=== PATIENT | female | born 1970 | race Caucasian/White ===

== ENCOUNTER 2017-06-08 08:31 | Inpatient (IN) | payer MEDICAID ==
[~2017-06-08] VITALS: Ht 167.6 cm; Wt 72.7 kg
[~2017-06-08 08:31] MED LIST: CEPH-571 PO; CEPH-572 PO; CYCL-1 PO; DICY10CA88 PO; HYDR-569 PO; NORCO10T PO
[2017-06-08] MEDS ORDERED: famotidine/PF 10 mg/ml inj IV ONE (09:00)
[2017-06-08] MEDS ORDERED: proCHLORperazine 10 MG/2 ml inj IV ONE (09:00)
[2017-06-08] MEDS ORDERED: LORazepam 2 mg/ml vial IV ONE (09:00)
[2017-06-08] MEDS ORDERED: normal saline 1000ML IV soln IVB ONE ×2 (09:00→12:45)
[2017-06-08 09:15] LABS: BASOPHILS % (AUTO) 0.2 % (0-1); EOSINOPHILS # (AUTO) 0.1 X10'3 (0-0.9); EOSINOPHILS % (AUTO) 0.6 % (0-6); HEMATOCRIT 45.6 % (35.0-45.0); HEMOGLOBIN 15.4 g/dl (12.0-16.0); LYMPHOCYTES # (AUTO) 2.4 X10'3 (1.1-4.8); LYMPHOCYTES % (AUTO) 18.4 % (21-51); MEAN CORPUSCULAR HEMOGLOBIN 30.9 PG (27.0-31.0); MEAN CORPUSCULAR HGB CONC 33.8 % (33.0-36.5); MEAN CORPUSCULAR VOLUME 91.4 FL (78-98); MEAN PLATELET VOLUME 7.4 FL (7.4-10.4); MONOCYTES # (AUTO) 0.4 X10'3 (0-0.9); MONOCYTES % (AUTO) 3.2 % (2-12); NEUTROPHILS # (AUTO) 10.3 X10'3 (1.8-7.7); NEUTROPHILS % (AUTO) 77.6 % (42-75); PLATELET COUNT 456 X10'3 (140-440); RED BLOOD COUNT 4.99 X10'6 (4.20-5.60); RED CELL DISTRIBUTION WIDTH 13.2 % (11.5-14.5); WHITE BLOOD COUNT 13.2 X10'3 (4.5-11.0)
[2017-06-08 09:28] LABS: HCG SERUM QL NEGATIVE
[2017-06-08 09:29] LABS: ALANINE AMINOTRANSFERASE 23 U/L (12-78); ALBUMIN 3.8 G/DL (3.4-5.0); ALBUMIN/GLOBULIN RATIO 0.9 (1.1-1.5); ALKALINE PHOSPHATASE 134 IU/L (46-116); ANION GAP 13 (8-16); ASPARTATE AMINO TRANSFERASE 15 U/L (10-37); BILIRUBIN,TOTAL 0.6 MG/DL (0.1-1.0); BLOOD UREA NITROGEN 10 MG/DL (7-18); BUN/CREATININE RATIO 12.5 (6.6-38.0); CALCIUM 9.4 MG/DL (8.5-10.1); CHLORIDE 102 MMOL/L (99-107); GLUCOSE 166 MG/DL (70-104); LIPASE < 50 U/L (73-393); POTASSIUM 3.5 MMOL/L (3.5-5.1); SODIUM 137 MMOL/L (135-145); TOTAL CARBON DIOXIDE 21.8 MMOL/L (24-32); TOTAL PROTEIN 7.9 G/DL (6.4-8.2); eGFR 77 ML/MIN
[2017-06-08 10:54] LABS: CLARITY,URINE CLEAR (Clear); COLOR,URINE STRAW (Yellow); GLUCOSE, URINE NEGATIVE (Neg); KETONES,URINE 40 mg/dl (Neg); LEUKOCYTE ESTERASE ,URINE NEGATIVE (Neg); NITRITES, URINE NEGATIVE (Neg); OCCULT BLOOD,URINE TRACE-INTACT (Neg); PROTEIN,URINE NEGATIVE (Neg); UROBILINOGEN,URINE 0.2 E.U/dL (0.2-1.0)
[2017-06-08 10:56] LABS: UA COLLECTION TYPE CLN CATCH MIDSTREAM
[2017-06-08 11:01] LABS: BACTERIA,URINE FEW /HPF (Neg); MUCUS STRANDS FEW /LPF (Neg); RBC,URINE 0-2 /HPF (0-2); SQUAMOUS EPITHELIAL CELL,UR FEW /LPF (FEW); WBC,URINE 0-4 /HPF (0-4)
[2017-06-08 11:06] LABS: URINE AMPHETAMINE SCREEN NEGATIVE (Neg); URINE BARBITUATE SCREEN NEGATIVE (Neg); URINE BENZODIAZEPINES SCREEN NEGATIVE (Neg); URINE CANNABINOID SCREEN POSITIVE (Neg); URINE COCAINE SCREEN NEGATIVE (Neg); URINE METHADONE SCREEN NEGATIVE (Neg); URINE OPIATE SCREEN POSITIVE (Neg); URINE PHENCYCLIDINE SCREEN NEGATIVE (Neg)
[2017-06-08] MEDS ORDERED: ondansetron/PF 4mg/2ml inj IV ONE ×2 (11:25→12:45)
[2017-06-08] MEDS ORDERED: metoclopramide 5 mg/ml inj IV ONE (14:40)
[2017-06-08] MEDS ORDERED: pantoprazole 40 MG vial IV ONE ×2 (14:40→15:35)
[2017-06-08] MEDS ORDERED: iohexol 300mg/ml 100ml inj. ONE (14:42)
[2017-06-08] MEDS ORDERED: acetaminophen 325mg tablet PO PRN (14:50)
[2017-06-08] MEDS ORDERED: magnesium hydroxide 30ml (MOM) UD suspension PO PRN (14:50)
[2017-06-08] MEDS ORDERED: metoclopramide 5 mg/ml inj IV PRN (14:50)
[2017-06-08] MEDS ORDERED: mag hydrox/Alum hydrox/simeth 30ml oral suspension PO PRN (14:50)
[2017-06-08] MEDS ORDERED: hydrALAZINE 20mg/ml inj. IV ONE ×2 (14:50→17:45)
[2017-06-08] MEDS ORDERED: ondansetron/PF 4mg/2ml inj IV PRN (14:50)
[2017-06-08 15:17] LABS: HEMOGLOBIN A1C 5.2 % (4.5-6.2)
[2017-06-08] MEDS: normal saline 1000ml 1,000 ML IV SCH (15:18)
[2017-06-08] MEDS ORDERED: SERT100T10 PO (16:02)
[2017-06-08 16:47] VITALS: BP 185/87
[2017-06-08] MEDS ORDERED: HYDROmorphone inj. 0.5 MG/0.5 ML DISP.SYRIN IV ONE (17:45)
[2017-06-08] MEDS: ondansetron/PF 4mg/2ml inj IV PRN (17:59)
[2017-06-08 20:00] VITALS: BP 154/79
[2017-06-09] VITALS: BP 156/93
[2017-06-09] MEDS: HYDROcodone/acetaminophen 10/325mg tab PO SCH ×4 (00:44→17:15)
[2017-06-09] MEDS ORDERED: HYDROmorphone inj. 0.5 MG/0.5 ML DISP.SYRIN IV ONE (05:50)
[2017-06-09 06:19] LABS: BASOPHILS % (AUTO) 0.2 % (0-1); EOSINOPHILS % (AUTO) 0 % (0-6); HEMATOCRIT 45.2 % (35.0-45.0); HEMOGLOBIN 15.5 g/dl (12.0-16.0); LYMPHOCYTES # (AUTO) 1.6 X10'3 (1.1-4.8); LYMPHOCYTES % (AUTO) 9.5 % (21-51); MEAN CORPUSCULAR HEMOGLOBIN 31.2 PG (27.0-31.0); MEAN CORPUSCULAR HGB CONC 34.4 % (33.0-36.5); MEAN CORPUSCULAR VOLUME 90.7 FL (78-98); MEAN PLATELET VOLUME 7.2 FL (7.4-10.4); MONOCYTES # (AUTO) 0.6 X10'3 (0-0.9); MONOCYTES % (AUTO) 3.8 % (2-12); NEUTROPHILS # (AUTO) 14.1 X10'3 (1.8-7.7); NEUTROPHILS % (AUTO) 86.5 % (42-75); PLATELET COUNT 473 X10'3 (140-440); RED BLOOD COUNT 4.98 X10'6 (4.20-5.60); RED CELL DISTRIBUTION WIDTH 13.5 % (11.5-14.5); WHITE BLOOD COUNT 16.3 X10'3 (4.5-11.0)
[2017-06-09 06:36] LABS: ALANINE AMINOTRANSFERASE 19 U/L (12-78); ALBUMIN 3.6 G/DL (3.4-5.0); ALBUMIN/GLOBULIN RATIO 0.9 (1.1-1.5); ALKALINE PHOSPHATASE 123 IU/L (46-116); ANION GAP 16 (8-16); ASPARTATE AMINO TRANSFERASE 15 U/L (10-37); BILIRUBIN,TOTAL 0.6 MG/DL (0.1-1.0); BLOOD UREA NITROGEN 3 MG/DL (7-18); BUN/CREATININE RATIO 4.3 (6.6-38.0); CALCIUM 8.8 MG/DL (8.5-10.1); CHLORIDE 103 MMOL/L (99-107); CHOLESTEROL 152 MG/DL (0-200); GLUCOSE 110 MG/DL (70-104); HDL CHOLESTEROL 50 MG/DL (35-60); LDL CHOLESTEROL 88 MG/DL (50-100); SODIUM 139 MMOL/L (135-145); TOTAL CARBON DIOXIDE 20.1 MMOL/L (24-32); TOTAL PROTEIN 7.6 G/DL (6.4-8.2); TRIGLYCERIDES 99 MG/DL (20-135); eGFR 89 ML/MIN
[2017-06-09 07:08] VITALS: BP 158/96
[2017-06-09] MEDS ORDERED: non-formulary drug (Sertraline HCl 1 TAB) PO SCH (08:00)
[2017-06-09] MEDS: sertraline 50mg tablet PO SCH (08:56)
[2017-06-09] MEDS: normal saline 1000ml 1,000 ML IV SCH ×2 (09:19→13:01)
[2017-06-09 11:00] VITALS: BP 149/97
[2017-06-09] MEDS ORDERED: potassium Cl 20 mEq SR tablet PO PRN ×2 (11:35)
[2017-06-09] MEDS ORDERED: magnesium 4gm in 100ml NS 100 ML IV PRN (11:35)
[2017-06-09] MEDS ORDERED: magnesium Cl slow-release 64mg tablet PO PRN (11:35)
[2017-06-09] MEDS ORDERED: magnesium 2GM in 50ml NS 50 ML IV PRN (11:35)
[2017-06-09] MEDS ORDERED: potassium Cl 40MEQ/NS 500ml 500 ML IV PRN ×2 (11:35)
[2017-06-09] MEDS: Potassium Cl inj 40 MEQ, LIDOcaine 1% 30ml vial 5 ML in normal saline 500ml IV soln 500 ML IV PRN ×2 (12:57→17:15)
[2017-06-09 20:00] VITALS: BP 161/93
[2017-06-10] VITALS: BP 163/91
[2017-06-10] MEDS: HYDROcodone/acetaminophen 10/325mg tab PO SCH ×3 (05:42→17:45)
[2017-06-10] MEDS: normal saline 1000ml 1,000 ML IV SCH (05:46)
[2017-06-10 06:37] LABS: BASOPHILS % (AUTO) 0.2 % (0-1); EOSINOPHILS # (AUTO) 0.1 X10'3 (0-0.9); EOSINOPHILS % (AUTO) 0.8 % (0-6); HEMATOCRIT 41.9 % (35.0-45.0); HEMOGLOBIN 14.6 g/dl (12.0-16.0); LYMPHOCYTES # (AUTO) 2.4 X10'3 (1.1-4.8); LYMPHOCYTES % (AUTO) 23.1 % (21-51); MEAN CORPUSCULAR HEMOGLOBIN 31.7 PG (27.0-31.0); MEAN CORPUSCULAR HGB CONC 34.9 % (33.0-36.5); MEAN PLATELET VOLUME 7.4 FL (7.4-10.4); MONOCYTES # (AUTO) 0.6 X10'3 (0-0.9); MONOCYTES % (AUTO) 6.2 % (2-12); NEUTROPHILS # (AUTO) 7.2 X10'3 (1.8-7.7); NEUTROPHILS % (AUTO) 69.7 % (42-75); PLATELET COUNT 408 X10'3 (140-440); RED BLOOD COUNT 4.61 X10'6 (4.20-5.60); RED CELL DISTRIBUTION WIDTH 12.4 % (11.5-14.5); WHITE BLOOD COUNT 10.3 X10'3 (4.5-11.0)
[2017-06-10 06:58] LABS: ALANINE AMINOTRANSFERASE 20 U/L (12-78); ALBUMIN 3.2 G/DL (3.4-5.0); ALBUMIN/GLOBULIN RATIO 0.9 (1.1-1.5); ALKALINE PHOSPHATASE 95 IU/L (46-116); ANION GAP 10 (8-16); ASPARTATE AMINO TRANSFERASE 14 U/L (10-37); BILIRUBIN,TOTAL 0.8 MG/DL (0.1-1.0); BLOOD UREA NITROGEN 5 MG/DL (7-18); BUN/CREATININE RATIO 8.3 (6.6-38.0); CALCIUM 8.4 MG/DL (8.5-10.1); CHLORIDE 105 MMOL/L (99-107); GLUCOSE 88 MG/DL (70-104); MAGNESIUM 1.8 MG/DL (1.5-2.4); POTASSIUM 3.8 MMOL/L (3.5-5.1); SODIUM 139 MMOL/L (135-145); TOTAL CARBON DIOXIDE 24.1 MMOL/L (24-32); TOTAL PROTEIN 6.7 G/DL (6.4-8.2); eGFR > 90 ML/MIN
[2017-06-10] MEDS: ondansetron/PF 4mg/2ml inj IV PRN (06:59)
[2017-06-10 08:00] VITALS: BP 186/108
[2017-06-10] MEDS: sertraline 50mg tablet PO SCH ×2 (08:00→15:29)
[2017-06-10] MEDS ORDERED: proCHLORperazine 10 MG/2 ml inj IV PRN (09:05)
[2017-06-10] MEDS ORDERED: dexamethasone 4mg/ml inj IV ONE (09:05)
[2017-06-10 11:00] VITALS: BP 174/95
[2017-06-10 20:00] VITALS: BP 162/98
[2017-06-11] VITALS: BP 150/95
[2017-06-11] MEDS: normal saline 1000ml 1,000 ML IV SCH (00:11)
[2017-06-11 06:13] LABS: BASOPHILS % (AUTO) 0.1 % (0-1); EOSINOPHILS # (AUTO) 0.1 X10'3 (0-0.9); EOSINOPHILS % (AUTO) 0.7 % (0-6); HEMATOCRIT 44.2 % (35.0-45.0); HEMOGLOBIN 14.9 g/dl (12.0-16.0); LYMPHOCYTES # (AUTO) 2.7 X10'3 (1.1-4.8); LYMPHOCYTES % (AUTO) 21.1 % (21-51); MEAN CORPUSCULAR HEMOGLOBIN 31.2 PG (27.0-31.0); MEAN CORPUSCULAR HGB CONC 33.8 % (33.0-36.5); MEAN CORPUSCULAR VOLUME 92.5 FL (78-98); MEAN PLATELET VOLUME 6.9 FL (7.4-10.4); MONOCYTES % (AUTO) 7.6 % (2-12); NEUTROPHILS # (AUTO) 8.8 X10'3 (1.8-7.7); NEUTROPHILS % (AUTO) 70.5 % (42-75); PLATELET COUNT 415 X10'3 (140-440); RED BLOOD COUNT 4.78 X10'6 (4.20-5.60); RED CELL DISTRIBUTION WIDTH 13.3 % (11.5-14.5); WHITE BLOOD COUNT 12.6 X10'3 (4.5-11.0)
[2017-06-11] MEDS: HYDROcodone/acetaminophen 10/325mg tab PO SCH ×2 (06:33→12:23)
[2017-06-11 06:52] LABS: ALANINE AMINOTRANSFERASE 17 U/L (12-78); ALBUMIN 3.3 G/DL (3.4-5.0); ALKALINE PHOSPHATASE 91 IU/L (46-116); ANION GAP 10 (8-16); ASPARTATE AMINO TRANSFERASE 11 U/L (10-37); BILIRUBIN,TOTAL 0.9 MG/DL (0.1-1.0); BLOOD UREA NITROGEN 9 MG/DL (7-18); BUN/CREATININE RATIO 12.9 (6.6-38.0); CALCIUM 8.8 MG/DL (8.5-10.1); CHLORIDE 105 MMOL/L (99-107); GLUCOSE 93 MG/DL (70-104); MAGNESIUM 1.9 MG/DL (1.5-2.4); PHOSPHORUS 2.6 MG/DL (2.3-4.5); POTASSIUM 3.5 MMOL/L (3.5-5.1); SODIUM 141 MMOL/L (135-145); TOTAL CARBON DIOXIDE 26.2 MMOL/L (24-32); TOTAL PROTEIN 6.7 G/DL (6.4-8.2); eGFR 89 ML/MIN
[2017-06-11 07:13] VITALS: BP 158/94
[2017-06-11] MEDS: sertraline 50mg tablet PO SCH (07:15)
[2017-06-11 12:00] VITALS: BP 149/94
== END 2017-06-11 14:30 | disposition home or self-care (01) | DRG 199 ==
LOC: ER 08:31 → ED HOLD 14:49 → MED 3N 16:50
PROVIDERS: ADMIT Internal Medicine; ATTEND Internal Medicine
PROC: BW211ZZ Computerized Tomography (CT Scan) of Abdomen and Pelvis using Low Osmolar Contrast (ICD-10-PCS; principal; 2017-06-08)
DX: I16.0 Hypertensive urgency (principal); F32.9 Major depressive disorder, single episode, unspecified; F12.929 Cannabis use, unspecified with intoxication, unspecified; F32.89 Other specified depressive episodes; I10 Essential (primary) hypertension; F12.90 Cannabis use, unspecified, uncomplicated; G89.4 Chronic pain syndrome; G43.909 Migraine, unspecified, not intractable, without status migrainosus; E87.6 Hypokalemia; M54.9 Dorsalgia, unspecified; Z86.14 Personal history of Methicillin resistant Staphylococcus aureus infection; Z88.2 Allergy status to sulfonamides; Z79.899 Other long term (current) drug therapy; Z79.01 Long term (current) use of anticoagulants; Z79.82 Long term (current) use of aspirin
CPT/HCPCS: 36415; 71045; 74177; 80053; 80061; 80305; 81001; 83036; 83690; 83735; 84100; 84703; 85025; 87070; 87502; 87503; 96361; 96374; 96375; 96376; 99285; C9113; J0360; J0780; J1100; J1170; J2060; J2270; J2405; J2765; J3480; J3490; J7030; Q9967

== ENCOUNTER 2021-12-14 09:02 | Emergency (ER) | payer MEDICAID ==
[~2021-12-14] VITALS: Ht 167.6 cm; Wt 70.0 kg
[~2021-12-14 09:02] MED LIST changes: -CEPH-571 PO; -CEPH-572 PO; -CYCL-1 PO; -DICY10CA88 PO; -HYDR-569 PO; +IBUP-1986 PO; +PRED50TA PO; +SERT-434 PO
[2021-12-14 09:30] VITALS: BP 175/90
[2021-12-14] MEDS ORDERED: HYDROcodone/acetaminophen 5mg/325mg tablet PO ONE (10:50)
[2021-12-14] MEDS ORDERED: TETanus/Pertussis (Acell)/Diphther VAC/PF (Tdap-Adult) 0.5ml syringe IMVAC ONE (10:50)
== END 2021-12-14 11:58 | disposition home or self-care (01) ==
LOC: ER 09:03
DX: S80.01XA Contusion of right knee, initial encounter (principal); I10 Essential (primary) hypertension; G43.909 Migraine, unspecified, not intractable, without status migrainosus; G89.29 Other chronic pain; M54.50 Low back pain, unspecified; F17.200 Nicotine dependence, unspecified, uncomplicated; F12.90 Cannabis use, unspecified, uncomplicated; Z88.2 Allergy status to sulfonamides; W01.0XXA Fall on same level from slipping, tripping and stumbling without subsequent striking against object, initial encounter; Y93.89 Activity, other specified; Y92.89 Other specified places as the place of occurrence of the external cause; Y99.8 Other external cause status
CPT/HCPCS: 73564; 90471; 90715; 99284; A6223; J7030; A6449

== ENCOUNTER 2022-08-16 17:44 | Emergency (ER) | payer MEDICAID ==
[~2022-08-16] VITALS: Ht 167.6 cm; Wt 65.0 kg
[2022-08-16 18:14] VITALS: BP 172/100
[2022-08-16] MEDS ORDERED: LIDOcaine 5% patch TP ONE (20:50)
[2022-08-16] MEDS ORDERED: diazepam 5mg tablet PO ONE (20:50)
== END 2022-08-16 21:04 | disposition home or self-care (01) ==
LOC: ER 17:46
DX: M54.50 Low back pain, unspecified (principal); G89.29 Other chronic pain; G43.909 Migraine, unspecified, not intractable, without status migrainosus; I10 Essential (primary) hypertension; F17.200 Nicotine dependence, unspecified, uncomplicated; F12.90 Cannabis use, unspecified, uncomplicated; Z86.14 Personal history of Methicillin resistant Staphylococcus aureus infection; Z88.2 Allergy status to sulfonamides; Z79.899 Other long term (current) drug therapy
CPT/HCPCS: 99283

== ENCOUNTER 2023-08-26 14:44 | Outpatient (CLI) | payer MEDICAID | END 2023-08-26 23:59 | disposition home or self-care (01) | LOC: RAD 14:44 | PROVIDERS: ATTEND Nurse Practitioner Family | DX: M19.032 Primary osteoarthritis, left wrist (principal); M79.641 Pain in right hand | CPT/HCPCS: 73130 ==

== ENCOUNTER 2024-06-18 11:40 | Outpatient (CLI) | payer MEDICAID | END 2024-06-18 23:59 | disposition home or self-care (01) | LOC: RAD 11:40 | PROVIDERS: ATTEND Nurse Practitioner Family | DX: Z12.2 Encounter for screening for malignant neoplasm of respiratory organs (principal); F17.290 Nicotine dependence, other tobacco product, uncomplicated | CPT/HCPCS: 71271 ==

== ENCOUNTER 2024-12-12 19:21 | Emergency (ER) | payer MEDICAID, OTHER ==
[2024-12-12 19:27] VITALS: TEMP 98.3
--- NOTE | 2024-12-12 19:44 | ELECTROCARDIOGRAPH REPORT ---
[facility] Test Date: 2024-12-12 Test Time: 19:41:22 Pat Name: BRIAN MANCILLA Department: [facility]- Patient ID: [id number] Room: Gender: F Parts Salesman: : 1970 Requested By: CHIQUITA RIVERA Order Number: [id number] Reading MD: Dr. Chiquita Rivera Measurements Intervals [place] Rate: 116 P: 80 AR: 163 QRS: 52 QRSD: 89 T: 0 QT: 288 QTc: 401 Interpretive Statements Sinus tachycardia Consider left atrial enlargement Nonspecific repol abnormality, diffuse leads Electronically Signed On 12-12-2024 20:04:[address] Chiquita Rivera Please click the below link to view image of tracing.
--- NOTE | 2024-12-12 20:14 | RADIOLOGY REPORT ---
CLINICAL INDICATION: fall RIGHT HIP PAIN TECHNIQUE: 3 radiographic views of the right hip were obtained. Comparison: None FINDINGS/IMPRESSION: There is subtle lucency over the right femoral neck without cortical disruption. An occult fracture c an not be excluded. Consider CT for further evaluation if clinically indicated. Mild to moderate degenerative changes of bilateral hips. Postsurgical changes of L5-S1.
[2024-12-12 21:15] VITALS: BP 149/80; PULSE 88; O2SAT 98
--- NOTE | 2024-12-12 21:25 | Physician Documentation ---
History of Present Illness ~ Chief Complaint: Mechanical Fall Stated Complaint: FALL Time Seen by MD: 20:45 OK to notify your PCP?: Yes Primary Medical Doctor: [facility] Source: patient, RN notes reviewed, old records Mode of Arrival: POV Exam Limitations: no limitations HPI 54 year old female seen in bed 03 with a history of back pain presents to the emergency department for complaints of right sided hip pain with her for complaints of right hip pain that began yesterday. She states that she was walking when her dogs leashes wrapped around her ankle causing her to fall on her right hip. She complains of severe pain stating that she has been unable to put any weight on her leg since the fall. She denies any dizziness prior to the fall. Tetanus within 5 Years?: No (unsure) Medication Reconciliation Allergies: Coded Allergies: Sulfa (Sulfonamide Antibiotics) (Verified Allergy, Unknown, 12/12/24) Scheduled Hydrocodone Bit/Acetaminophen 10/325 MG* (Thorp 10/325 MG*), 2 TAB PO Q8H, (Reported) Ibuprofen (Ibuprofen), 1 TAB PO Q8H Prednisone (Prednisone), 1 TAB PO DAILY Sertraline HCl (Sertraline HCl), 1 TAB PO DAILY, (Reported) Past Medical History Past Medical History: Migraine, Hypertension, Chronic Back Pain, Psoriasis, MRSA Abscess Past Surgical History: noncontributory, other Smoking Status: Current every day smoker Alcohol Use: None Drug Use: marijuana Lives with: Family Lives In: Home Occupation: employed Review of Systems All Other Systems at this time: Reviewed and Negative ROS As stated above in the HPI, otherwise all systems are reviewed and negative. Physical Exam Vital Signs: RN Vital Signs have been reviewed: Yes, Temperature: 98.3, Source: Temporal, Heart Rate: 88, Respiratory Rate: 18, BP: 149/80, Pulse Oximetry: 98 Oxygen Flow Rate: 0 Pulse Oximetry Reflects: adequate oxygenation Physical Exam General: The patient is well developed, well nourished, nontoxic appearing and is in no acute distress. Skin: Peerless, warm and dry with no rashes. HEENT: Head was normocephalic and atraumatic. Eyes - pupils equal, round, reactive to light and accommodation. Extraocular movements were intact. Conjunctivae were nonicteric. Ears - bilateral tympanic membranes were normal. The mouth and oropharynx were clear with moist mucous membranes. There were no pharyngeal exudates or erythema. Neck: Supple and nontender. There was no jugular venous distention, lym phadenopathy, thyromegaly or masses. Chest: Clear to auscultation bilaterally without wheezes, rales or rhonchi. No accessory muscle use. No dullness to percussion. Heart: Rate regular and rhythmic. S1, S2. No murmurs. Palpation of the chest wall was normal. No rubs or thrills. Abdomen: Soft, nontender and nondistended. Positive bowel sounds. No guarding or rebound. No hepatosplenomegaly or palpable masses. Extremities: Pain with flexion of right hip. Patient was able to endure internal and external rotation of right hip. Otherwise, No cyanosis, clubbing or edema. The patient moves all extremities. Pulses were equal and symmetric. Neurologic: Cranial nerves II-XII were intact. Sensation was intact to light touch throughout. Motor strength was 5/5 in all four extremities. Deep tendon reflexes were intact in both upper and lower extremities. Psychologic: The patient was oriented to person, place and time. The patient demonstrated appropriate judgement and insight. Progress Progress Note 2130: Patient denied any admission or additional medical treatment at this time due to insurance issues. Results/Orders Reviewed/noted all lab results: Yes Results/Orders Orders - ANDRES RAMIREZ MD Electrocardiogram (12/12/24 19:33) Hip Unilateral 2 Views (12/12/24 19:52) Ortho Orders (12/12/24 21:27) Completed Orders - ANDRES RAMIREZ MD Electrocardiogram (12/12/24 19:33) Hip Unilateral 2 Views (12/12/24 19:52) Hydrocodone/Apap 10/325 (Thorp 10/325mg (12/12/24 21:25) Medications Received in ER Medications (Trade) Dose Ordered Sig/Yina Route PRN Reason Start Time Stop Time Status Last Admin Dose Admin (Thorp 10/325mg tab) 2 tab ONCE ONCE PO 12/12/24 21:25 12/12/24 21:27 DC 12/12/24 21:35 2 TAB Vital Signs 12/12/24 12/12/24 12/12/24 12/12/24 19:27 20:10 21:15 21:35 Temp 98.3 Pulse 107 88 Resp 18 18 18 25 B/P (MAP) 151/92 149/80 (103) Pulse Ox 98 98 O2 Flow Rate 0 Re-Evaluation Re-Evaluation : Progress Patient was seen and examined. Patient is given reassurance. Patient was offered CAT scan and ultimate admission for orthopedic evaluation and possible pinning if indicated. Patient is unable to bear any weight having severe right hip pain with any weight-bearing activity. Patient was told she appears to have a fracture and a CAT scan was going to confirm the diagnosis but the patient refused CAT scan and admission. Patient states she can not afford surgery at this time and will go home and try to see if it will heal on its own. Patient was then discharged home despite insisting that the patient should be admitted. Patient understood the risks and agreed to be discharged. Patient received pain medications prior to discharge. 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 Andres Ramirez Measurements Intervals [place] Rate: 116 P: 80 MS: 163 QRS: 52 QRSD: 89 T: 0 QT: 288 QTc: 401 Interpretive Statements Sinus tachycardia Consider left atrial enlargement Nonspecific repol abnormality, diffuse leads Electronically Signed On 12-12-2024 20:04:[address] Andres Ramirez Please click the below link to view image of tracing. EKG Date and Time:12/12/241940 Electronically Signed by: ANDRES RAMIREZ MD Date and Time: 12/12/242003 Bone/Soft Tissue X-Ray (Ext.) : Additional Comment CLINICAL INDICATION: fall RIGHT HIP PAIN TECHNIQUE: 3 radiographic views of the right hip were obtained. Comparison: None FINDINGS/IMPRESSION: There is subtle lucency over the right femoral neck without cortical disruption. An occult fracture can not be excluded. Consider CT for further evaluation if clinically indicated. Mild to moderate degenerative changes of bilateral hips. Postsurgical changes of L5-S1. Electronically Signed by:MARIA ELENA GONSALES DO Date & Time: 12/12/242011 Medical Decision Making Additional info obtained from: old records Differential Dx:Considerations: Include: Fracture(s), Abrasion(s), Contusion(s), Hematoma(s), Other Departure Time of Disposition: 21:36 Disposition: 01 HOME / SELF CARE / HOMELESS Impression: Primary Impression: Nondisplaced fracture of neck of right femur Condition: Stable Discharge Instructions: Hip Fracture Referrals: NO PRIMARY CARE PROVIDER (PCP) CASSIE DALE MD Education Educated: Patient Educated regarding: diagnosis, treatment, prognosis, need for follow up Signature Scribe Signature: Scribed for Andres Ramirez MD by Michael Irene . 12/12/24 21:36 Attestation: The note accurately reflects work and decisions made by me.Andres Ramirez MD 12/12/24 21:25 ANDRES RAMIREZ MD Dec 12, 2024 21:25 MICHAEL GONSALES Dec 12, 2024 21:35
[2024-12-12 21:35] VITALS: RESP 25
[2024-12-12] MEDS: HYDROcodone/acetaminophen 10/325mg tab PO ONE (21:35)
== END 2024-12-12 21:59 | disposition home or self-care (01) ==
LOC: ER 19:22
DX: S72.091A Other fracture of head and neck of right femur, initial encounter for closed fracture (principal); I10 Essential (primary) hypertension; G43.909 Migraine, unspecified, not intractable, without status migrainosus; F17.200 Nicotine dependence, unspecified, uncomplicated; F12.90 Cannabis use, unspecified, uncomplicated; Z88.2 Allergy status to sulfonamides; Z79.899 Other long term (current) drug therapy; X58.XXXA Exposure to other specified factors, initial encounter; Y93.01 Activity, walking, marching and hiking; Y92.89 Other specified places as the place of occurrence of the external cause; Y99.8 Other external cause status
CPT/HCPCS: 73502; 93005; 99284